=== PATIENT | male | born 1990 | race Caucasian/White ===

== ENCOUNTER 2022-01-04 14:52 | Outpatient (REF) | payer OTHER, SELFPAY ==
[2022-01-05 05:10] LABS: HIV AB/AG Nonreactive (Nonreactive); HIV Num 1 0.08 S/CO (0.00-0.99)
[2022-01-05 06:30] LABS: CT PCR NOT DETECTED (Not Detect.); NG PCR NOT DETECTED (Not Detect.)
== END 2022-01-04 14:53 | disposition home or self-care (01) ==
LOC: HO.HMGCLDS 14:52
PROVIDERS: PCP Nurse Practitioner Family; Visit Provider Physician Assistant
DX: Z11.4 Encounter for screening for human immunodeficiency virus [HIV] (principal); Z11.3 Encounter for screening for infections with a predominantly sexual mode of transmission; Z20.2 Contact with and (suspected) exposure to infections with a predominantly sexual mode of transmission
CPT/HCPCS: 36415; 87389; 87491; 87591

== ENCOUNTER 2023-08-18 11:14 | Outpatient (AMB) | payer OTHER, SELFPAY ==
--- NOTE | 2023-08-18 11:20 | MHC.PC.OV ---
Vital Signs 08/18/23 11:25 Height 5 ft 8 in Weight 176 lb BMI 26.8 BP 120/80 Blood Pressure Location Rt brachial Position Sitting Pulse 78 Pulse Source Pulse Oximeter Pulse Oximetry (%) 98 Oxygen Delivery Method Room Air Intake Visit Reasons: Annual PE Allergies amoxicillin Allergy (Mild, Verified 08/18/23 12:19) Rash Medication List - Last Reconciled 08/18/23 by JAMIA Ball No Known Home Meds Tobacco use date assessed: 08/18/23 Dental Screening Dental Screen Date: 08/18/23 Did you have a dental visit in the last 12 months?: Yes Did you have a dental problem in the last 6 months where you did not have access to dental care?: No Was dental information given to patient?: Patient has dentist HPI Annual PE HPI Details Pt is here for a PE. Will order labs. [facility], [facility] Social History Housing: House Patient Tobacco Use Status: Former Tobacco user Quit Date: quit 12 years ago e-Cigarette/Vaping Use: Never Used Second Hand Smoke Exposure: No service: No Current occupational status: employed Current occupation: [employer] Current occupational exposures/hazards: No Cognitive needs: No Hearing needs: No Vision needs: No Questionnaire Thrive Questionnaire Date Thrive assessed: 07/20/22 AUDIT C Alcohol Use Questionnaire (AUDIT-C) 1. How often do you have a drink containing alcohol?: 2-3 times a week 2. How many drinks containing alcohol do you have on a typical day when you are drinking?: 1 or 2 3. How often do you have six or more drinks on one occasion?: Never Total Score: 3 Score Reviewed/Action Taken: No FABIAN-7 AMB Questionnaire FABIAN-7 Date FABIAN - 7 assessed: 07/20/22 Source: Developed by Drs. Brown Bailon, Selma Stovall, Nathaniel Nunn and colleagues, with an educational ghazala from [employer]. Review of Systems Const Denies chills and Denies fever(s) Eyes Denies blurry vision ENT Denies vertigo, Denies dizziness and Denies sore throat Card Denies chest pain at rest, Denies chest pain with activity, Denies diaphoresis, Denies dyspnea and Denies dyspnea on exertion Resp Denies cough, Denies dyspnea, Denies dyspnea on exertion and Denies wheezing GI Denies abdominal pain, Denies melena, Denies hematochezia, Denies constipation, Denies diarrhea and Denies loose stools Denies hematuria Musc Denies numbness and Denies tingling Skin/Breast Denies lesions Neuro Denies vertigo, Denies dizziness, Denies numbness and Denies tingling Psych Denies anxiety, Denies depression, Denies homicidal ideation, Denies suicidal ideation and Denies other (substance abuse) Aller/Immun Denies wheezing Physical exam (Primary Care) Vital Signs: Last Vital Signs Pulse 78 08/18/23 11:25 BP 120/80 08/18/23 11:25 Pulse Ox 98 08/18/23 11:25 Oxygen Delivery Method Room Air 08/18/23 11:25 BMI result Body Mass Index 26.8 Tobacco/Smoking Status: Tobacco use Status Tobacco use date assessed 08/18/23 08/18/23 11:28 Patient Tobacco Use Status Former Tobacco user 08/18/23 11:21 e-Cigarette/Vaping Use Never Used 08/18/23 11:21 Thrive Assessment: Date of Thrive Assessment Date Thrive assessed 07/20/22 08/18/23 11:21 Const General: cooperative Nutritional Appearance: well nourished Orientation/consciousness: patient oriented x3 HENMT Head: Yes normal to inspection, Yes normocephalic and Yes atraumatic Ears: TM's normal bilaterally Eyes General: appearance normal, both eyes and all related structures Alignment and Position: alignment normal and position normal Neck Neck: Yes normal visual inspection and Yes no lymphadenopathy Thyroid: Thyroid normal Resp Effort & Inspection: normal respiratory effort Auscultation: clear to auscultation bilaterally Cardio Rate: regular rate Rhythm: regular rhythm Heart sounds: S1 normal heart sound present, S2 normal heart sound present and no murmurs GI Palpation (GI): Soft to palpation and nontender Auscultation: normal bowel sounds Male General Exam: Yes normal external exam Penis: normal penis Scrotum: scrotum normal, testes descended bilaterally and no inguinal hernias Testes: no testicular mass Skin Rashes: no rashes Neuro General: patient oriented x3, moves all extremities, no focal motor deficits and deep tendon reflexes 2+ bilaterally Romberg Test: Negative Psych Appearance: grossly normal Mental Status: mental status grossly normal Speech and movement: Normal speech and movement present Affect: normal affect Attitude: cooperative Thought process: Normal thought process present Thought content: Normal thought content present Insight: Good insight present (Psych) Judgement: Good judgement present (Psych) Assessment and Plan Assessment & Plan (1) Physical exam: Code(s): Z00.00 - Encounter for general adult medical examination without abnormal findings Orders: Orders Complete Blood Count Auto Diff Today Z00.00 - Encounter for general adult medical examination without abnormal findings Comprehensive [place]. Panel Fast Today Z00.00 - Encounter for general adult medical examination without abnormal findings Lipid Panel Today Z00.00 - Encounter for general adult medical examination without abnormal findings TSH reflex Free T4 Today Z00.00 - Encounter for general adult medical examination without abnormal findings UA CC w/rflx Micro + Cult Today Z00.00 - Encounter for general adult medical examination without abnormal findings Coding Level of Care Code Est Pt Prev Care 18-39y(40215) Diagnoses Physical exam Z00.00
[2023-08-18 11:25] VITALS: BP 120/80; PULSE 78; O2SAT 98; BMI 26.8
== END 2023-08-18 11:47 | disposition home or self-care (01) ==
PROVIDERS: Visit Provider Nurse Practitioner Family
DX: Z00.00 Encounter for general adult medical examination without abnormal findings (principal)
CPT/HCPCS: 99395

== ENCOUNTER 2025-06-07 14:59 | Outpatient (AMB) | payer OTHER, SELFPAY ==
[2025-06-07 15:00] VITALS: BP 116/60; PULSE 55; TEMP 36.6; O2SAT 98; BMI 26.3
--- NOTE | 2025-06-07 15:00 | MHC.OFFWIV ---
Intake Vital Signs 06/07/25 15:00 Height 5 ft 8 in Weight 173 lb BMI 26.3 BP 116/60 Blood Pressure Location Rt brachial Position Sitting Pulse 55 Pulse Source Pulse Oximeter Temp 97.8 F Temp Source Oral Pulse Oximetry (%) 98 Oxygen Delivery Method Room Air Intake Visit Reasons: ep potential back left bruised rib Intake Note: pt presents with pain to left lateral upper back after wrestling a couple weeks ago Patient Tobacco Use Status: Former Tobacco user Allergies amoxicillin Allergy (Mild, Verified 06/07/25 15:03) Rash Do you need a note to return to daycare/school/sports/work: No HPI HPI Comments History of Present Illness Details History of Present Illness - The patient is a 35-year-old male presenting with left posterior rib pain - The pain began approximately two weeks ago following a wrestling incident at the gym. - The patient did not experience immediate pain but noticed it later, especially when taking deep breaths. - The pain is described as slight and located on the back side of the left ribs. - The patient has been managing the pain with ice application, which provides relief. - No shortness of breath or difficulty breathing reported. - The patient has not used any creams or medications other than ice. Physical Exam General: Cooperative, healthy appearing, comfortable, no acute distress and well developed Orientation: Patient oriented x3 Limitations: No limitations Head: Normal to inspection Ears: Hearing grossly normal bilaterally Nose: Normal External nose present Face and sinus: Normal facial exam Eyes: Appearance normal, both eyes and all related structures Neck: Normal visual inspection and Yes full ROM Respiratory: Normal respiratory effort and able to speak in complete sentences. Lung sounds clear to auscultation and equal in all glass. Skin: No rashes or lesions noted, no bruising observed to left posterior ribs Neuro: Patient oriented x3 Extremities: Normal to inspection Review of Systems - Respiratory: Denies dyspnea or difficulty breathing All systems reviewed and are unremarkable except as noted in HPI PFSH Social History Housing: House Patient Tobacco Use Status: Former Tobacco user e-Cigarette/Vaping Use: Never Used Second Hand Smoke Exposure: No service: No Current occupational status: employed Current occupation: [employer] Current occupational exposures/hazards: No Cognitive needs: No Hearing needs: No Vision needs: No Physical Exam Vital Signs: Last Vital Signs Temp 97.8 F 09/26/25 15:00 Pulse 55 06/07/25 15:00 BP 116/60 06/07/25 15:00 Pulse Ox 98 06/07/25 15:00 Oxygen Delivery Method Room Air 06/07/25 15:00 BMI result Body Mass Index 26.3 Assessment & Plan Assessment & Plan (1) Contusion of rib on left side: Code(s): S29.8XXA - Other specified injuries of thorax, initial encounter Qualifiers: Encounter type: initial encounter Qualified Code(s): S29.8XXA - Other specified injuries of thorax, initial encounter Plan: Plan Patient was informed and verbally consented to the use of an ambient scribe for clinic note documentation during this visit. - Recommend continued use of ice for pain relief. - Consider use of topical NSAIDs such as Voltaren gel for additional relief. - Advise patient to avoid activities that exacerbate pain and to take it easy. - Educate patient that healing may take several weeks due to constant rib movement with breathing. (2) Intercostal muscle strain: Code(s): S29.011A - Strain of muscle and tendon of front wall of thorax, initial encounter Qualifiers: Encounter type: initial encounter Qualified Code(s): S29.011A - Strain of muscle and tendon of front wall of thorax, initial encounter Plan: as above Coding Level of Care Code Est Pt Level 3 (84006) Diagnoses Contusion of rib on left side, initial encounter S29.8XXA Encounter type: initial encounter Intercostal muscle strain, initial encounter S29.011A Encounter type: initial encounter
== END 2025-06-07 16:19 | disposition home or self-care (01) ==
PROVIDERS: PCP Nurse Practitioner Family; Visit Provider Physician Assistant
DX: S29.8XXA Other specified injuries of thorax, initial encounter (principal); S29.011A Strain of muscle and tendon of front wall of thorax, initial encounter